=== PATIENT | female | born 1990 | race African-American/Black ===

== ENCOUNTER 2017-08-15 10:18 | Emergency (ER) | payer OTHER ==
[~2017-08-15] VITALS: Ht 177.8 cm; Wt 86.2 kg
[2017-08-15 10:22] VITALS: BP 128/80
--- NOTE | 2017-08-15 10:22 | Emergency Room Report ---
History of Present Illness General Chief Complaint: To Be Triaged Source: Patient Present Illness HPI 27YOF with 1-2 days bilateral earache, nasal congestion No ear drainage Doesnt use Qtips No fever, chills, sore throat, headache [place] No OTC meds Allergies: Coded Allergies: AMOXICILLIN (Verified Allergy, Unknown, 08/15/17) Uncoded Allergies: PENICILLIN (Allergy, Unknown, 08/15/17) Patient History Past Medical History: none Past Surgical History: none Pertinent Family History: none Social History: Denies: smoking, alcohol use, drug use Now: No Immunizations: UTD Reviewed Nursing Documentation: PMH: Agreed, PSxH: Agreed Review of Systems All Other Systems: negative except mentioned in HPI Physical Exam Sp02 EP Interpretation: reviewed, normal General Appearance: normal inspection, well appearing, no apparent distress, alert, GCS 15, non-toxic Head: normocephalic, atraumatic Eyes: bilateral eye PERRL, bilateral eye EOMI ENT: normal ENT inspection, hearing grossly normal, normal pharynx, no angioedema, normal voice, uvula midline, moist mucus membranes, nasal congestion , other - Bilateral cerumen. Left TM erythematous, dull to light Neck: normal inspection, full range of motion, supple, thyroid normal, no meningismus, no bony tend Respiratory: normal inspection, lungs clear, normal breath sounds, no rhonchi, no respiratory distress, no retraction, no accessory muscle use, no wheezing, speaking full sentences Cardiovascular #1: regular rate, rhythm, no edema, no JVD, normal capillary refill Gastrointestinal: normal inspection, normal bowel sounds, non tender, soft, no mass, no peritonitis, non-distended, no guarding, no hernia, no pulsatile mass Genitourinary: no CVA tenderness Musculoskeletal: normal inspection, back normal, normal range of motion, no calf tenderness, pelvis stable, Ignacia's Sign negative Neurologic: normal inspection, alert, oriented x3, responsive, 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, motor strength/tone normal, cerebellar normal, normal gait, speech normal Psychiatric: normal inspection, judgement/insight normal, mood/affect normal, no suicidal/homicidal ideation, no delusions Skin: normal inspection, normal color, no rash Lymphatic: normal inspection, no adenopathy Medical Decision Making Diagnostic Impression: Primary Impression: URI (upper respiratory infection) Qualified Codes: J06.9 - Acute upper respiratory infection, unspecified Additional Impressions: Earache symptoms in both ears Otitis media Qualified Codes: H65.192 - Other acute nonsuppurative otitis media, left ear ER Course VSS, afebrile Left otitis media, bilateral cerumen ?eustachian tube dysfunction ER course: Patient has remained stable during ED stay. Disposition: Patient is to be discharged to home. Prescriptions given are Zpack, flonase, debrox Patient is instructed to follow up with their primary care doctor within 5 days. Strict return precautions discussed with patient such as fever, chills, worsening/severe pain, nausea, vomiting, which may indicate severe illness. Patient verbalizes understanding and agrees with plan. Please note that this Emergency Department Report was dictated using nprogressplans examiner technology software, occasionally this can lead to erroneous entry secondary to interpretation by the dictation equipment Status: improved Disposition: HOME, SELF-CARE Scripts Fluticasone Propionate (Flonase Allergy Relief) 9.9 Ml [place].susp 9.9 ML NS BID for 7 Days, #1 UNIT Prov: FRANCY VELASCO M.D. 08/15/17 Carbamide Peroxide (DEBROX) 15 Ml Drops 5 DROP BOTH EARS TWICE A DAY for 4 Days, ML 0 Refills Prov: FRANCY VELASCO M.D. 08/15/17 Azithromycin* (ZITHROMAX*) 250 Mg Tablet 250 MG ORAL DAILY for 5 Days, #6 TAB 0 Refills Take two tables once daily for 1 day, then one tablet once daily for 4 days. Prov: FRANCY VELASCO M.D. 08/15/17 FRANCY VELASCO M.D. Aug 15, 2017 10:22
[2017-08-15] MEDS ORDERED: DEBROX15 M1 BOTH EARS (10:33)
[2017-08-15] MEDS ORDERED: FLONASE ALLERG9.9 ML NS (10:33)
[2017-08-15] MEDS ORDERED: ZITHROMAX250 MG ORAL (10:33)
[2017-08-15 10:40] VITALS: BP 128/80
== END 2017-08-15 10:40 | disposition home or self-care (01) ==
LOC: EMR 10:31
DX: R06.9 Unspecified abnormalities of breathing (principal); H92.03 Otalgia, bilateral; H66.92 Otitis media, unspecified, left ear; H61.23 Impacted cerumen, bilateral; Z88.0 Allergy status to penicillin
CPT/HCPCS: 99284

== ENCOUNTER 2017-08-16 11:29 | Emergency (ER) | payer OTHER ==
[~2017-08-16] VITALS: Ht 177.8 cm; Wt 86.2 kg
[~2017-08-16 11:29] MED LIST: DEBROX15 M1 BOTH EARS; FLONASE ALLERG9.9 ML NS; ZITHROMAX250 MG ORAL
--- NOTE | 2017-08-16 12:08 | Emergency Room Report ---
History of Present Illness General Chief Complaint: Earache Source: Patient Present Illness HPI 27 yo female patient presents to ER complaining of cough, sore throat and earache x2days. Patient reports cough is dry. Patient reports previously being seen in ER yesterday for similar symptoms following ski trips "few days" ago. Patient reports symptoms have not improved since yesterday after taking medications for one day. Patient denies new or worsening of symptoms. Patient requesting work note to excuse from work for 1 week. Patient denies chest pain, SOB, difficulty breathing, nausea, vomiting. Patient denies fever, diarrhea, rash, dysuria. Allergies: Coded Allergies: AMOXICILLIN (Verified Allergy, Unknown, 08/15/17) Uncoded Allergies: PENICILLIN (Allergy, Unknown, 08/15/17) Patient History Past Medical History: see triage record Last Menstrual Period: Now : 1 Para: 0 Reviewed Nursing Documentation: PMH: Agreed, PSxH: Agreed Nursing Documentation-PMH Past Medical History: No Stated History Review of Systems All Other Systems: negative except mentioned in HPI Physical Exam Vital Signs Date Time Temp Pulse Resp B/P (MAP) Pulse Ox O2 Delivery O2 Flow Rate FiO2 08/16/17 11:39 98.0 89 16 140/82 98 Room Air 98.1 Sp02 EP Interpretation: reviewed, normal General Appearance: well appearing, no apparent distress, alert, GCS 15, non- toxic Head: normocephalic, atraumatic Eyes: bilateral eye normal inspection, bilateral eye PERRL ENT: hearing grossly normal, normal pharynx, no angioedema, normal voice, uvula midline, moist mucus membranes, nasal congestion, other - no exudates, no pharyngeal erythema; left ear: TM ertythematous, dull light reflex, cerumen present in canal, no albaro with ear pulling; right ear: TM erythema, light reflex intact, no pain with ear pulling, cerumen present Neck: normal inspection, full range of motion, no bony tend Respiratory: normal inspection, lungs clear, normal breath sounds, no rhonchi, no respiratory distress, no retraction, no accessory muscle use, no wheezing, speaking full sentences Cardiovascular #1: regular rate, rhythm, no edema Gastrointestinal: normal bowel sounds, non tender, soft, no mass, non-distended , no guarding, no rebound Musculoskeletal: back normal, digits/nails normal, gait/station normal, normal range of motion, no calf tenderness Neurologic: alert, oriented x3, responsive, motor strength/tone normal, normal gait Psychiatric: mood/affect normal Skin: no rash Lymphatic: no adenopathy Medical Decision Making PA Attestation Dr. Lazaro is my supervising Physician whom patient management has been discussed with. Diagnostic Impression: Primary Impression: Sore throat Additional Impressions: Cough Earache symptoms ER Course Pt presents to ED c/o cough, sore throat, and earache. DDX considered but are not limited to influenza, viral URI, pneumonia, strep throat, rhinitis, sinusitis, otitis media. VITAL SIGNS are WNL, patient is afebrile. Lungs clear to auscultation, patient did not cough while in ER for exam. ORDERS: none required at this time, diagnosis is clinical ED INTERVENTIONS: Viscous lidocaine provided to patient for sore throat. DISCHARGE: At this time pt is stable for d/c to home. Patient is resting comfortably in no acute distress, nontoxic appearing. Patient instructed that symptoms will not improve within 1 day; patient instructed to continue taking Zpack, Debrox, and Flonase as instructed from previous ER visit. Work not provided to patient for 2 days. Patient instructed to contact insurance to get name of primary care provider to establish care. Take Tylenol as needed for pain symptoms. Will provide with patient care instructions and any necessary prescriptions. Care plan and follow-up instructions provided. Patient instructed to follow-up with primary care provider in 3 - 5 days. Patient questions asked and answered. Patient reports understanding and agreement to treatment plan. ER precautions given. Patient instructed to return to ER immediately for any new or worsening of symptoms including but not limited to increasing SOB, persistent fever, intractable vomiting. Last Vital Signs Date Time Temp Pulse Resp B/P (MAP) Pulse Ox O2 Delivery O2 Flow Rate FiO2 08/16/17 11:39 98.0 89 16 140/82 98 Room Air 98.1 Disposition: HOME, SELF-CARE Condition: Stable Patient Instructions: Otitis Media, Adult, [id number], Sore Throat, Easy-to- Read Additional Instructions: Followup with primary care provider in 3 -5 days. Continue to take medications prescribed at previous ER visit. Complete full course of antibiotics. Do not take nasal spray longer than 3 days. Take Tylenol at home as indicated for pain symptoms. Take medications as directed. Patient questions asked and answered. ER precautions given, patient instructed to return to ER immediately for any new or worsening of symptoms. José Nunez Aug 16, 2017 12:08
[2017-08-16] MEDS ORDERED: Lidocaine 2% Visc 15ml soln ORAL ONE (12:15)
[2017-08-16 12:19] VITALS: BP 139/81
== END 2017-08-16 12:19 | disposition home or self-care (01) ==
LOC: EMR 12:07
DX: J06.9 Acute upper respiratory infection, unspecified (principal); R05 Cough; H92.03 Otalgia, bilateral; H61.22 Impacted cerumen, left ear; Z88.0 Allergy status to penicillin
CPT/HCPCS: 99282